=== PATIENT | female | born 1965 | race Caucasian/White ===

== ENCOUNTER → 2018-07-10 | Day surgery (SDC) | payer OTHER | END | disposition home or self-care (01) | LOC: SDS 07:48 | DX: M23.204 Derangement of unspecified medial meniscus due to old tear or injury, left knee (principal); Z53.8 Procedure and treatment not carried out for other reasons ==

== ENCOUNTER 2018-07-14 09:45 | Day surgery (SDC) | payer OTHER ==
[~2018-07-14 09:45] MED LIST: SEVOFLURANE 15 MIN
[2018-07-14] MEDS ORDERED: LIDOCAINE 2% (SDV) 5 ML INJ (10:36)
[2018-07-14] MEDS ORDERED: PROPOFOL 20 ML (10:36)
[2018-07-14] MEDS ORDERED: MEPERIDINE 25 MG INJ IV (11:30)
[2018-07-14] MEDS ORDERED: HYDROmorphONE 1 MG/5 ML IV SYRINGE IV ×2 (11:30)
[2018-07-14] MEDS ORDERED: FENTAnyl 50 MCG/ML VIAL IV ×3 (11:30)
[2018-07-14] MEDS ORDERED: ONDANSETRON 4 MG INJ IV ×2 (11:30→14:00)
[2018-07-14] MEDS ORDERED: PROCHLORPERAZINE 10 MG INJ IV (11:30)
[2018-07-14] MEDS ORDERED: DIPHENHYDRAMINE 50 MG INJ IV (11:30)
[2018-07-14] MEDS ORDERED: OXYCODONE/ACETAMINOPHEN (5/325) TAB PO (11:30)
[2018-07-14] MEDS ORDERED: EPINEPHrine 1 MG/ML 30 ML INJ INJ (12:00)
[2018-07-14] MEDS ORDERED: MIDAZOLAM 1 MG/ML 2 ML INJ (12:20)
[2018-07-14] MEDS ORDERED: FENTAnyl 50 MCG/ML VIAL (12:21)
[2018-07-14] MEDS ORDERED: DEXAMETHASONE 4 MG/ML 5 ML INJ (12:30)
[2018-07-14] MEDS ORDERED: ONDANSETRON 4 MG INJ (12:30)
[2018-07-14] MEDS ORDERED: FAMOTIDINE 20 MG INJ (12:30)
[2018-07-14] MEDS ORDERED: CEFAZOLIN 1 GM INJ (12:30)
[2018-07-14] MEDS ORDERED: EPINEPHrine 0.1 MG/ML SYG (12:33)
[2018-07-14] MEDS: POLYMYXIN/BACITRACIN 1L IRRIG (12:51)
[2018-07-14] MEDS: EPINEPHrine 1 MG/ML 30 ML INJ IRR (12:52)
[2018-07-14] MEDS ORDERED: EPHEDrine 25 MG/5 ML SYG (13:02)
[2018-07-14] MEDS: BUPIVACAINE 0.5% (SDV) 30 ML INJ (13:42)
[2018-07-14] MEDS: ROPIVACAINE 0.5 % 30 ML VIAL (13:43)
[2018-07-14] MEDS ORDERED: morphine 2 MG INJ IV (14:00)
[2018-07-14] MEDS ORDERED: HYDROCODONE/APAP (5/325) TAB PO ×2 (14:00)
[2018-07-14] MEDS: HYDROmorphONE 1 MG/5 ML IV SYRINGE IV (14:21)
== END 2018-07-14 16:04 | disposition home or self-care (01) ==
LOC: SDS 09:45
DX: S83.232D Complex tear of medial meniscus, current injury, left knee, subsequent encounter (principal); X58.XXXD Exposure to other specified factors, subsequent encounter
CPT/HCPCS: 29881; 84703; 86850; 86900; 86901